=== PATIENT | male | born 1945 | race Two or more races ===

== ENCOUNTER → 2020-12-12 | Day surgery (SDC) | payer OTHER ==
[~2020-12-12] VITALS: Ht 165.1 cm; Wt 86.2 kg
[~2020-12-12] MED LIST: ACET-1158 PO; ACETAMINOPHEN 500 MG TAB PO PRN; ANGIOMAX 250 MG VIAL IV ONE; ASPI-543 PO; ASPirin 325 MG TAB ONE; ATOR-47 PO; BACL10TA PO; CARV3.1240 PO; CLOPIDOGREL 300 MG TAB ONE; DONETAB6 PO; DUTA0.5C11 PO; ENAL10TA12 PO; HYDROcodone-ACET 5/325MG TAB PO PRN; IODIXANOL 320MG/ML 100ML BTL IV ONE; LIDOCAINE 2%HCL (LOCAL ANESTH.) INJ 20ML MDV ONE; MECL25TA18 PO; METF-370 PO; MIDAZOLAM HCL 1MG/1ML-2 ML VIAL ONE; OME20T PO; ONDANSETRON HCL 4 MG/2 ML VIAL IV PRN; SODIUM CHL 0.9% 50 ML ONE; VERAPAMIL 2.5MG/ML INJ 2ML VIAL IV ONE; [UNRECOGNIZED DRUG - CODE] PO; fentaNYL CITRATE 100 MCG/2 ML VL ONE
== END | disposition home or self-care (01) ==
LOC: CATH 06:51
PROVIDERS: ATTEND Internal Medicine
DX: R94.39 Abnormal result of other cardiovascular function study (principal); I25.118 Atherosclerotic heart disease of native coronary artery with other forms of angina pectoris; I10 Essential (primary) hypertension; E78.5 Hyperlipidemia, unspecified; I63.9 Cerebral infarction, unspecified; E11.9 Type 2 diabetes mellitus without complications; K76.9 Liver disease, unspecified; E78.00 Pure hypercholesterolemia, unspecified; Z20.822 Contact with and (suspected) exposure to COVID-19; Z98.890 Other specified postprocedural states; Z79.899 Other long term (current) drug therapy; Z95.5 Presence of coronary angioplasty implant and graft; Z87.891 Personal history of nicotine dependence
CPT/HCPCS: 92920; 92978; 93454; C1725; C1769; C1887; C1894; J0583; J1644; J2250; J3010; J7030; Q9967; U0003; 99152; 99153